=== PATIENT | female | born 1985 | race Caucasian/White ===

== ENCOUNTER 2024-11-19 13:50 | Emergency (ER) | payer OTHER, SELFPAY ==
[2024-11-19 13:53] VITALS: BP 162/104
--- NOTE | 2024-11-19 15:56 | ED.GENMED ---
History of Present Illness
<Adalgisa Marie PA-C - Last Filed: 11/19/24 18:07>
General
Chief Complaint: DVT/Possible Blood Clot
Time Seen by Provider: 11/19/24 15:51
Phy Exam
<Adalgisa Marie PA-C - Last Filed: 11/19/24 18:07>
Physical Exam
Physical Exam:
GENERAL: Alert , in no apparent distress, comfortable at rest
HEAD: NCAT
CV: 2+ DP PULSES B/L
normal temperature b/l LE
NEUROLOGICAL: Alert and oriented, no focal neuro deficits, , 5/5 strength, sensation intact, ambulation slight limp right leg
SKIN: Warm and dry, 2 small old brownish bruises L medial thigh near knee
no warmth/redness/other discoloration
MUSCULOSKELETAL: L anterior thigh, proximal to patella medial, there is a pulsation that is felt on palpation
no significant tendenress
knee stable
full painless ROM
calf soft, compartment soft
minimal discomfort
no cords
popliteal artery seems normal and nontender
PSYCH: Normal and appropriate interaction.
Course
<IRMA Toribio Last Filed: 11/19/24 18:07>
Orders/Labs/Results
Orders:
Orders
11/19/24 16:03
Venous Doppler Lwr Ext Rt [ Perip Venous LOWER Ext RT] Urgent
Comment:
Reason For Exam: thigh pain/calf pain, pulsation
11/19/24 16:04
Test Result ONCE
11/19/24 16:58
Complete Blood Count/With Diff Urgent
Comprehensive Metabolic Panel Urgent
HCG, Serum Qualitative Screen Urgent
Magnesium Urgent
TSH Reflex To Free T4 Urgent
Abnormal Lab Results
11/19/24
16:58
Absolute Neuts (auto) 7.7 H 10^3/uL
(1.4-6.5)
Lymphocytes % 17.4 L %
(20.5-51.1)
11/19/24 16:58
11/19/24 16:58
Vital Signs
Initial and Last Documented VS:
Initial Vital Signs
Temp Pulse Resp BP Pulse Ox
36.7 C 93 18 162/104 98
11/19/24 13:53 11/19/24 13:53 11/19/24 13:53 11/19/24 13:53 11/19/24 13:53
Last Documented Vital Signs
Temp Pulse Resp BP Pulse Ox
36.7 C 62 16 127/80 98
11/19/24 13:53 11/19/24 17:36 11/19/24 17:36 11/19/24 17:36 11/19/24 17:36
<Dagoberto Chappell MD - Last Filed: 11/19/24 18:58>
Orders/Labs/Results
Orders:
Orders
11/19/24 16:03
Venous Doppler Lwr Ext Rt [US Periph Venous LOWER Ext RT] Urgent
Comment:
Reason For Exam: thigh pain/calf pain, pulsation
11/19/24 16:04
Test Result ONCE
11/19/24 16:58
Complete Blood Count/With Diff Urgent
Comprehensive Metabolic Panel Urgent
HCG, Serum Qualitative Screen Urgent
Magnesium Urgent
TSH Reflex To Free T4 Urgent
Abnormal Lab Results
11/19/24
16:58
Absolute Neuts (auto) 7.7 H 10^3/uL
(1.4-6.5)
Lymphocytes % 17.4 L %
(20.5-51.1)
11/19/24 16:58
11/19/24 16:58
Vital Signs
Initial and Last Documented VS:
Initial Vital Signs
Temp Pulse Resp BP Pulse Ox
36.7 C 93 18 162/104 98
11/19/24 13:53 11/19/24 13:53 11/19/24 13:53 11/19/24 13:53 11/19/24 13:53
Last Documented Vital Signs
Temp Pulse Resp BP Pulse Ox
36.7 C 62 16 127/80 98
11/19/24 13:53 11/19/24 17:36 11/19/24 17:36 11/19/24 17:36 11/19/24 17:36
<Adalgisa Marie PA-C - Last Filed: 11/19/24 18:07>
MDM/Problems Addressed
Differential Diagnosis Includes:
see MDM
MDM/Problems Addressed:
Note:
CHIEF COMPLAINT(S)
Pain in the leg with accompanying symptoms.
HISTORY OF PRESENT ILLNESS
The patient is a 39-year-old female who presented with pain and a pulsation to the R medial knee that began yesterday. she can feel it pulsate or twitch and it is sore now extending into the calf. she has no pain with walking or bending the knee.
no distal swelling, color change, cold foot
no trauma
has a bit of stress and anxiety ongoing.
. She recently started a new exercise routine and is trying to lose weight. The patient also reported feeling a lump-like sensation in her throat, with occasional gagging and discomfort upon swallowing, though she was informed previously it might be
due to allergies. she went to PCP and they have her scheduled to see ENT and GI.
SOCIAL DETERMINANTS AFFECTING HEALTH
The patient referenced experiencing significant stress over the last couple of years, which may be contributing to her current symptoms.
MEDICATIONS
None currently reported by the patient.
REVIEW OF SYSTEMS
- Neuromuscular: Intermittent pain in the calf and thigh without swelling or redness.
- Cardiovascular: No recent travel or recent surgeries, denies clotting disorders, no chest pain.
- Hematological: History of bruising.
- Digestive: Occasional sensation of a lump in the throat with discomfort upon swallowing.
- Respiratory: No reported shortness of breath.
- General: Increased stress over the last couple of years.
PHYSICAL EXAM
Nursing notes reviewed and vital signs reviewed.
PLAN
1. Ultrasound of the leg to rule out deep vein thrombosis or superficial thrombophlebitis.
2. Blood tests to check electrolytes, including potassium levels, due to suspicion of muscle spasm from the recent change in workouts.
3. Referral to Ear, Nose, and Throat specialist to evaluate throat discomfort.
4. Await results from endocrine evaluations regarding possible thyroid issues or gastroesophageal reflux disease (GERD).
DIFFERENTIAL DIAGNOSIS
The Differential Diagnosis includes, in no particular order and is not limited to:
1. Deep vein thrombosis
2. Muscle spasm due to electrolyte imbalance
3. Superficial thrombophlebitis
4. Gastroesophageal reflux disease
5. Anxiety or stress-related muscular tension
6. Thyroid dysfunction
7. Exercise-induced muscle strain
8. Hypokalemia
9. Vocal cord dysfunction
10. Pharyngoesophageal disorder
39 y/o F
no chronic medical problems
here becuase she feels a twitch or pulsation in her anterior left thigh that started yesterday
mild discomfort into the calf
worried about blood clot
no peripheral changes like cold foot, foot dropp, weakness, numbness, redness
no swleling
i can palpate a twitch or pulsation under the skin on the L thigh
no venous dilation superficial to this
full knee ROM
it does not correlate with patient's HR/pulse
screening labs ordered to check electrolytes
also pt having some throat discomfort/dysphagia chronically, thinks it's gerd, supposed to see outpatient GI
not tachycardic
no cp, sob
labs reviewed and unremarkable
US neg
d/c home
drink fluids
less caffeine
war compresses
<Adalgisa Frank, PA-C - Last Filed: 11/19/24 18:07>
*Pulse Oximetry
SaO2: 98
ED Attending Note
<Adalgisa Marie PA-C - Last Filed: 11/19/24 18:07>
-
Portions of this chart may have been created with voice recognition software.� Occasional wrong word or��sound alike� substitutions may have occurred due to the inherent limitations of voice recognition software.
<Dagoberto Chappell MD - Last Filed: 11/19/24 18:58>
ED Attending Note
Patient seen and examined by attending physician: Yes
ED Attending Note:
I have seen and evaluated the patient with a [id number] encounter. I have spoken to the advance practicer provider and involved in the medical history, the physical exam, medical decision making.
Evaluation and management service: agree unless noted differently below.
Results interpretation: agree unless noted differently below.
Focused HPI: 39-year-old female with no reported chronic medical issues presents for evaluation of discomfort and pulsing sensation near the right knee. Patient reports symptoms started yesterday and were a bit worse today. She reports a visible
pulsing/twitching just medial to the right patella. No trauma or injury. No other acute complaints.
Physical exam: Awake and alert not in distress. Hypertension in triage normalized by my assessment. On exam of the area of concern she has a visible twitching/pulsing just medial to the patella. Twitching does not track with patient's pulse.
There is no edema in the leg and she has good perfusion throughout.
Medical Decision Makin-year-old female presents for throbbing/pulsing sensation just medial to the right knee. She was concerned there could be a blood clot. DVT study today is negative. Labs were unremarkable. [id number] ultrasound in
the area of concern shows a visibly twitching muscle. Stable for discharge advised regarding supportive care. All questions answered.
Discharge Plan
Departure
Patient Disposition: Home (Routine Discharge)
Date of Disposition: 11/19/24
Time of Disposition: 18:56
Patient with high blood pressure during this ER visit?: Yes
Discharge Problem:
Muscle twitching
Instructions: Muscle spasm - ED (DC)
Referrals:
Esperanza Guerrero DO [Family Provider, Family Practice] - Follow up in 1 week
Activity Restrictions/Additional Instructions:
Make sure you are drinking plenty of fluids. You can apply warm compress to massage the area to help with muscle twitching. You can take Tylenol and ibuprofen as needed for discomfort.
Interventions
Interventions:
*Risk Screen - Suicide Last Done: 11/19/24 13:57
*General Assessment Last Done: 11/19/24 17:36
*Neglect/Abuse Screening Last Done: 11/19/24 13:57
*ED- Fall Risk Assessment Last Done: 11/19/24 17:36
ED- Cardiac Assessment Last Done: 11/19/24 17:21
ED- Pulmonary Assessment Last Done: 11/19/24 17:21
ED-Peripheral Vascular Assessment Last Done: 11/19/24 17:21
ED-Skin Assessment Last Done: 11/19/24 17:21
Discharge Date and Time
Print Language: MONGOLIAN
[2024-11-19 17:11] LABS: Hematocrit 43.0 % (37.0-47.0); Hemoglobin 14.8 g/dL (12.0-16.0); Mean Corp Hgb Conc. 34.4 g/dL (33.0-37.0); Mean Corpuscular Volume 84.8 fL (81.0-99.0); Nucleated Red Blood Cells % 0 %; Platelet Count 205 10^3/uL (130-400); Red Cell Dist. Width 13.3 % (11.5-14.5)
[2024-11-19 17:22] LABS: HCG, Serum Qualitative Screen Negative
[2024-11-19 17:36] VITALS: BP 127/80
[2024-11-19 17:40] LABS: ALT (SGPT) 17 U/L (0-35); AST (SGOT) 19 U/L (14-36); Albumin 4.8 g/dl (3.5-5.0); Alkaline Phosphatase 56 U/L (38-126); Blood Urea Nitrogen 9 mg/dl (7-17); Calcium 9.7 mg/dl (8.4-10.2); Carbon Dioxide 27 mmol/L (22-30); Chloride 107 mmol/L (98-107); Glucose 90 mg/dl (70-99); Magnesium 1.9 mg/dl (1.6-2.3); Potassium 4.1 mmol/L (3.5-5.1); Sodium 141 mmol/L (135-145); Total Protein 7.4 g/dl (6.3-8.2); eGFR > 60.00
== END 2024-11-19 19:00 | disposition home or self-care (01) ==
LOC: EMR 13:50
PROVIDERS: Physician Assistant; EMERGENCY PHYSICIAN Emergency Medicine; FAMILY PHYSICIAN Family Medicine
DX: R25.3 Fasciculation (principal); M79.604 Pain in right leg; F41.9 Anxiety disorder, unspecified
CPT/HCPCS: 99284; 80053; 83735; 84443; 84703; 85025; 93971